=== PATIENT | female | born 1995 | race Caucasian/White ===

== ENCOUNTER 2023-01-06 05:50 | Emergency (ER) | payer OTHER, SELFPAY ==
[2023-01-06 05:52] VITALS: BP 116/62; PULSE 53; RESP 20; O2SAT 99; BMI 24.0
--- NOTE | 2023-01-06 05:55 | DI.CT.S_ITS ---
PROCEDURE: CT KIDNEY URETER BLADDER (KUB) INDICATIONS: flank pain, right TECHNIQUE: Axial sections were acquired from the lung bases to the pubic symphysis. Coronal and sagittal reformats were performed. For radiation dose reduction, the following was used: automated exposure control, adjustment of mA and/or kV according to patient size. COMPARISON: None. FINDINGS: Image quality: Excellent. Lung bases: Lung bases are clear. Heart: No significant findings. URINARY: Right Kidney/ureter: There is a 4 mm right renal stone. There is mild right hydroureteronephrosis with small 2 mm distal right ureteral stone visualized at the right ureterovesicular junction. Left Kidney: No stones or hydronephrosis. Left Ureter: No hydroureter. Bladder: Normal wall thickness. No stones. ABDOMEN: Liver: Unremarkable. Gallbladder: Unremarkable. Biliary ducts: Unremarkable. Pancreas: Unremarkable. Spleen: Unremarkable. Adrenal Glands: Unremarkable. Stomach and Bowel: Stomach, small bowel loops, and colon are unremarkable. The appendix is not definitively visualized. However, no secondary findings of acute inflammation are noted in the right lower quadrant. Peritoneum: No abnormal intraperitoneal fluid. No free air. Ventral Wall: No hernia. Abdominal Nodes: No enlarged retroperitoneal or mesenteric lymph nodes. Vessels: Aorta and inferior vena cava are normal in size. PELVIS: Pelvic Organs: Unremarkable. Pelvic Nodes: Unremarkable. Miscellaneous: No inguinal hernias are seen. Bones: Visualized osseous structures appear intact without acute fracture or focal destructive lesion. No acute compression fractures of the imaged spine. IMPRESSION: There is a small 2 mm obstructing distal right ureteral stone visualized at the right ureterovesicular junction with associated mild-moderate right hydroureteronephrosis. Additional 4 mm right renal stone visualized. The appendix is not definitively visualized; however, no secondary findings for acute appendicitis identified in the right lower quadrant. No significant discrepancy with the prn physical therapist radiology preliminary report. Dictated by: Carlos Knight M.D. on 01/06/2023 at 7:32 Approved by: Carlos Knight M.D. on 01/06/2023 at 7:36
--- NOTE | 2023-01-06 05:57 | ED_ITS ---
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 with severe right flank pain. She is had no prior episodes like this. She describes the pain as a 10/10 poin ts to her right flank is unable to find a comfortable position notes that the pain is severe enough that it is causing nausea but she has not yet vomited. She recently finished her menstrual cycle had some vaginal itching was wondering if she perhaps had a yeast infection and used [id number] Monistat. She describes otherwise feeling well, no chest pain, dyspnea, palpitations, upper respiratory symptoms, diarrhea or dysuria. Related Data Previous Rx's Medication Instructions Recorded ibuprofen 800 mg tablet 800 mg PO Q8H PRN pain #20 tabs 01/06/23 nitrofurantoin 100 mg PO Q12H 5 days #10 caps 01/06/23 monohydrate/macrocrystals 100 mg capsule (Macrobid) ondansetron 4 mg disintegrating 4 mg PO Q8H PRN nausea and 01/06/23 tablet vomiting #10 tabs Allergies Allergy/AdvReac Type Severity Reaction Status Date / Time No Known Drug Allergies Allergy Verified 01/06/23 05:58 Review of Systems <Soraida Stevens MD - Last Filed: 01/07/23 07:20> Review of Systems Narrative: Pertinent positive and negative findings as per HPI Exam <Soraida Stevens MD - Last Filed: 01/07/23 07:20> Initial Vital Signs Initial Vital Signs: Vital Signs Pulse Rate 53 L 01/06/23 05:52 Respiratory Rate 20 01/06/23 05:52 Blood Pressure 116/62 01/06/23 05:52 Pulse Oximetry 99 01/06/23 05:52 Oxygen Delivery Method Room Air 01/06/23 05:52 General: Healthy appearing, in severe pain unable to find a comfortable position. Able to give a complete and coherent history. Well-nourished well-developed HEENT: Moist mucous membranes, normal sclera with reactive pupils, Respiratory: Lungs are clear to auscultation, no wheezing no rales no rhonchi. Full and symmetrical air movement Cardiac: Regular rate and rhythm no murmurs no bruits Abdomen: Soft, nontender, good bowel tones, right flank pain Skin: Pale but dry, no rashes Neurologic: Grossly neurologically intact with no obvious asymmetries or abnormalities Extremities: No trauma, well perfused Psych: Cooperative, appropriate insight and affect <Omar Sneed MD - Last Filed: 01/07/23 08:24> Initial Vital Signs Initial Vital Signs: Vital Signs Pulse Rate 53 L 01/06/23 05:52 Respiratory Rate 20 01/06/23 05:52 Blood Pressure 116/62 01/06/23 05:52 Pulse Oximetry 99 01/06/23 05:52 Oxygen Delivery Method Room Air 01/06/23 05:52 Course <Soraida Stevens MD - Last Filed: 01/07/23 07:20> Orders Ordered: Discontinued Medications Hydromorphone HCl (Hydromorphone 0.5 Mg Inj) 0.5 mg IV Q15MIN PRN PRN Reason: Pain, Last Admin: 01/06/23 07:24 Dose: 0.5 mg Documented By: Admin: 01/06/23 06:29 Dose: 0.5 mg Documented By: Sodium Chloride (Normal Saline 0.9%) 1,000 mls @ 1,000 mls/hr IV BOLUS ONE Stop: 01/06/23 06:54 Last Infusion: 01/06/23 07:02 Dose: 0 mls/hr Documented By: Admin: 01/06/23 06:00 Dose: 1,000 mls/hr Documented By: SB Ketorolac Tromethamine (Ketorolac 30 Mg/Ml Vial) 15 mg IV NOW ONE Stop: 01/06/23 05:56 Last Admin: 01/06/23 05:59 Dose: 15 mg Documented By: CHATO Nitrofurantoin Macrocrystals (Nitrofurantoin Er 100 Mg Capsule) 100 mg PO NOW ONE Stop: 01/06/23 08:47 Last Admin: 01/06/23 08:49 Dose: 100 mg Documented By: AMMatt Ondansetron HCl (Ondansetron 4 Mg/2 Ml Inj) 4 mg IV NOW ONE Stop: 01/06/23 05:56 Last Admin: 01/06/23 05:59 Dose: 4 mg Documented By: SB Ondansetron HCl (Ondansetron 4 Mg/2 Ml Inj) 4 mg IV NOW ONE Stop: 01/06/23 07:51 Last Admin: 01/06/23 07:55 Dose: 4 mg Documented By: AMV Vital Signs Vital signs: Vital Signs - 8 hr 01/06/23 05:52 01/06/23 05:59 01/06/23 06:00 Pulse Rate 53 L 49 L Respiratory Rate 20 Blood Pressure 116/62 110/62 Pulse Oximetry 99 100 Oxygen Delivery Method Room Air 01/06/23 06:01 01/06/23 08:00 Pulse Rate 55 L 59 L Respiratory Rate 18 Blood Pressure 103/58 L Pulse Oximetry 100 96 Oxygen Delivery Method <Omar Sneed MD - Last Filed: 01/07/23 08:24> Orders Ordered: Discontinued Medications Hydromorphone HCl (Hydromorphone 0.5 Mg Inj) 0.5 mg IV Q15MIN PRN PRN Reason: Pain, Last Admin: 01/06/23 07:24 Dose: 0.5 mg Documented By: Admin: 01/06/23 06:29 Dose: 0.5 mg Documented By: Sodium Chloride (Normal Saline 0.9%) 1,000 mls @ 1,000 mls/hr IV BOLUS ONE Stop: 01/06/23 06:54 Last Infusion: 01/06/23 07:02 Dose: 0 mls/hr Documented By: Admin: 01/06/23 06:00 Dose: 1,000 mls/hr Documented By: SB Ketorolac Tromethamine (Ketorolac 30 Mg/Ml Vial) 15 mg IV NOW ONE Stop: 01/06/23 05:56 Last Admin: 01/06/23 05:59 Dose: 15 mg Documented By: CHATO Nitrofurantoin Macrocrystals (Nitrofurantoin Er 100 Mg Capsule) 100 mg PO NOW ONE Stop: 01/06/23 08:47 Last Admin: 01/06/23 08:49 Dose: 100 mg Documented By: AMV Ondansetron HCl (Ondansetron 4 Mg/2 Ml Inj) 4 mg IV NOW ONE Stop: 01/06/23 05:56 Last Admin: 01/06/23 05:59 Dose: 4 mg Documented By: SB Ondansetron HCl (Ondansetron 4 Mg/2 Ml Inj) 4 mg IV NOW ONE Stop: 01/06/23 07:51 Last Admin: 01/06/23 07:55 Dose: 4 mg Documented By: AMV Vital Signs Vital signs: Vital Signs - 8 hr 01/06/23 05:52 01/06/23 05:59 01/06/23 06:00 Pulse Rate 53 L 49 L Respiratory Rate 20 Blood Pressure 116/62 110/62 Pulse Oximetry 99 100 Oxygen Delivery Method Room Air 01/06/23 06:01 01/06/23 08:00 Pulse Rate 55 L 59 L Respiratory Rate 18 Blood Pressure 103/58 L Pulse Oximetry 100 96 Oxygen Delivery Method Medical Decision Making <Soraida Stevens MD - Last Filed: 01/07/23 07:20> Lab Data 01/06/23 05:54 01/06/23 05:54 Labs: Lab Results 01/06/23 01/06/23 01/06/23 Range/Units 05:54 05:54 05:54 WBC 7.3 (4.5-11.0) X10^3/uL RBC 4.14 (4.0-5.2) X10^6/uL Hgb 13.1 (12.0-16.0) g/dL Hct 38.6 (36-46) % MCV 93.1 (80-100) fL MCH 31.7 (26-34) PG MCHC 34.0 (30-36) % RDW 11.8 (11.6-14.8) % Plt Count 254 (150-400) X10^3/uL Neut % (Auto) 50.4 (50-75) % Lymph % (Auto) 36.7 (25-40) % [place] % (Auto) 11.1 (3-14) % Eos % (Auto) 0.9 L (2-4) % Baso % (Auto) 0.9 (0-2) % Neut # (Auto) 3700 (0982-1591) /uL Lymph # (Auto) 2700 (5940-1316) /uL [place] # (Auto) 800 (0-900) /uL Eos # (Auto) 100 (0-450) /uL Baso # (Auto) 100 (0-100) /uL Sodium 135 L (137-145) mmol/L Potassium 3.8 (3.4-5.1) mmol/L Chloride 105 (98-107) mmol/L Carbon Dioxide 23 (22-32) mmol/L BUN 20 H (7-17) mg/dL Creatinine 0.85 (0.52-1.04) mg/dL Estimated GFR > 60 (>60) mL/min BUN/Creatinine Ratio 23.5 H (6-22) Glucose 138 H (70-100) mg/dL Calcium 8.6 (8.4-10.2) mg/dL Total Bilirubin 0.6 (0.2-1.3) mg/dL AST 26 (14-36) IU/L ALT 28 (<35) IU/L Alkaline Phosphatase 87 (38-126) U/L Total Protein 7.1 (6.3-8.2) g/dL Albumin 4.0 (3.5-5.0) g/dL Globulin 3.1 (1.7-4.1) g/dL Albumin/Globulin Ratio 1.3 (1.0-2.8) Lipase 140 (23-300) U/L HCG, Quant < 2.4 mIU/mL Urine Color Urine Appearance Urine pH (4.5-8.0) Ur Specific [place] (1.000-1.035) Urine Protein (Negative) Urine Glucose (UA) (Negative) g/dL Urine Ketones (NEGATIVE) Urine Occult Blood (Negative) Urine Nitrate (Negative) Urine Bilirubin (NEGATIVE) Urine Urobilinogen (0.2) E.U./dL Ur Leukocyte Esterase (NEGATIVE) Urine RBC (0-5/HPF) Urine WBC (0-5/HPF) Ur Squamous Epith Cells (0-5/HPF) Urine Bacteria (None) Ur Culture Indicated? 01/06/23 Range/Units 07:47 WBC (4.5-11.0) X10^3/uL RBC (4.0-5.2) X10^6/uL Hgb (12.0-16.0) g/dL Hct (36-46) % MCV (80-100) fL MCH (26-34) PG MCHC (30-36) % RDW (11.6-14.8) % Plt Count (150-400) X10^3/uL Neut % (Auto) (50-75) % Lymph % (Auto) (25-40) % [place] % (Auto) (3-14) % Eos % (Auto) (2-4) % Baso % (Auto) (0-2) % Neut # (Auto) (5876-1685) /uL Lymph # (Auto) (7408-6650) /uL [place] # (Auto) (0-900) /uL Eos # (Auto) (0-450) /uL Baso # (Auto) (0-100) /uL Sodium (137-145) mmol/L Potassium (3.4-5.1) mmol/L Chloride (98-107) mmol/L Carbon Dioxide (22-32) mmol/L BUN (7-17) mg/dL Creatinine (0.52-1.04) mg/dL Estimated GFR (>60) mL/min BUN/Creatinine Ratio (6-22) Glucose (70-100) mg/dL Calcium (8.4-10.2) mg/dL Total Bilirubin (0.2-1.3) mg/dL AST (14-36) IU/L ALT (<35) IU/L Alkaline Phosphatase (38-126) U/L Total Protein (6.3-8.2) g/dL Albumin (3.5-5.0) g/dL Globulin (1.7-4.1) g/dL Albumin/Globulin Ratio (1.0-2.8) Lipase (23-300) U/L HCG, Quant mIU/mL Urine Color Yellow Urine Appearance Cloudy Urine pH 5.5 (4.5-8.0) Ur Specific [place] >=1.030 H (1.000-1.035) Urine Protein 1+ H (Negative) Urine Glucose (UA) Negative (Negative) g/dL Urine Ketones Negative (NEGATIVE) Urine Occult Blood 3+ H (Negative) Urine Nitrate Negative (Negative) Urine Bilirubin Negative (NEGATIVE) Urine Urobilinogen 1.0 (0.2) E.U./dL Ur Leukocyte Esterase Trace H (NEGATIVE) Urine RBC 10-30/hpf H (0-5/HPF) Urine WBC 1-5/hpf (0-5/HPF) Ur Squamous Epith Cells 1-5 /hpf (0-5/HPF) Urine Bacteria Few (2-10) H (None) Ur Culture Indicated? Specimen cultured Point of Care Testing Test Results Negative Point of care testing: Point of Care Testing Test Results Negative MDM Narrative Medical decision making narrative: CC: Acute onset right flank pain Complicating co-morbidities: Possible yeast infection, just finished menstrual cycle Data collected from: patient, Differential considered: Kidney stone, pyelonephritis, ectopic doubt abdominal aneurysm Exam documented above, pertinent findings include: Right flank pain with non tender abdominal exam, unable to find a comfortable position Lab Test results independently reviewed as above. Pertinent findings: CBC is unremarkable Chemistries are relatively reassuring Imaging studies independently reviewed: Consultations: Treatments: Re-evaluations: Discussion: <Omar Sneed MD - Last Filed: 01/07/23 08:24> Lab Data Labs: Lab Results 01/06/23 01/06/23 01/06/23 Range/Units 05:54 05:54 05:54 WBC 7.3 (4.5-11.0) X10^3/uL RBC 4.14 (4.0-5.2) X10^6/uL Hgb 13.1 (12.0-16.0) g/dL Hct 38.6 (36-46) % MCV 93.1 (80-100) fL MCH 31.7 (26-34) PG MCHC 34.0 (30-36) % RDW 11.8 (11.6-14.8) % Plt Count 254 (150-400) X10^3/uL Neut % (Auto) 50.4 (50-75) % Lymph % (Auto) 36.7 (25-40) % [place] % (Auto) 11.1 (3-14) % Eos % (Auto) 0.9 L (2-4) % Baso % (Auto) 0.9 (0-2) % Neut # (Auto) 3700 (2532-6800) /uL Lymph # (Auto) 2700 (8881-5292) /uL [place] # (Auto) 800 (0-900) /uL Eos # (Auto) 100 (0-450) /uL Baso # (Auto) 100 (0-100) /uL Sodium 135 L (137-145) mmol/L Potassium 3.8 (3.4-5.1) mmol/L Chloride 105 (98-107) mmol/L Carbon Dioxide 23 (22-32) mmol/L BUN 20 H (7-17) mg/dL Creatinine 0.85 (0.52-1.04) mg/dL Estimated GFR > 60 (>60) mL/min BUN/Creatinine Ratio 23.5 H (6-22) Glucose 138 H (70-100) mg/dL Calcium 8.6 (8.4-10.2) mg/dL Total Bilirubin 0.6 (0.2-1.3) mg/dL AST 26 (14-36) IU/L ALT 28 (<35) IU/L Alkaline Phosphatase 87 (38-126) U/L Total Protein 7.1 (6.3-8.2) g/dL Albumin 4.0 (3.5-5.0) g/dL Globulin 3.1 (1.7-4.1) g/dL Albumin/Globulin Ratio 1.3 (1.0-2.8) Lipase 140 (23-300) U/L HCG, Quant < 2.4 mIU/mL Urine Color Urine Appearance Urine pH (4.5-8.0) Ur Specific [place] (1.000-1.035) Urine Protein (Negative) Urine Glucose (UA) (Negative) g/dL Urine Ketones (NEGATIVE) Urine Occult Blood (Negative) Urine Nitrate (Negative) Urine Bilirubin (NEGATIVE) Urine Urobilinogen (0.2) E.U./dL Ur Leukocyte Esterase (NEGATIVE) Urine RBC (0-5/HPF) Urine WBC (0-5/HPF) Ur Squamous Epith Cells (0-5/HPF) Urine Bacteria (None) Ur Culture Indicated? 01/06/23 Range/Units 07:47 WBC (4.5-11.0) X10^3/uL RBC (4.0-5.2) X10^6/uL Hgb (12.0-16.0) g/dL Hct (36-46) % MCV (80-100) fL MCH (26-34) PG MCHC (30-36) % RDW (11.6-14.8) % Plt Count (150-400) X10^3/uL Neut % (Auto) (50-75) % Lymph % (Auto) (25-40) % [place] % (Auto) (3-14) % Eos % (Auto) (2-4) % Baso % (Auto) (0-2) % Neut # (Auto) (7730-8941) /uL Lymph # (Auto) (7777-6645) /uL [place] # (Auto) (0-900) /uL Eos # (Auto) (0-450) /uL Baso # (Auto) (0-100) /uL Sodium (137-145) mmol/L Potassium (3.4-5.1) mmol/L Chloride (98-107) mmol/L Carbon Dioxide (22-32) mmol/L BUN (7-17) mg/dL Creatinine (0.52-1.04) mg/dL Estimated GFR (>60) mL/min BUN/Creatinine Ratio (6-22) Glucose (70-100) mg/dL Calcium (8.4-10.2) mg/dL Total Bilirubin (0.2-1.3) mg/dL AST (14-36) IU/L ALT (<35) IU/L Alkaline Phosphatase (38-126) U/L Total Protein (6.3-8.2) g/dL Albumin (3.5-5.0) g/dL Globulin (1.7-4.1) g/dL Albumin/Globulin Ratio (1.0-2.8) Lipase (23-300) U/L HCG, Quant mIU/mL Urine Color Yellow Urine Appearance Cloudy Urine pH 5.5 (4.5-8.0) Ur Specific [place] >=1.030 H (1.000-1.035) Urine Protein 1+ H (Negative) Urine Glucose (UA) Negative (Negative) g/dL Urine Ketones Negative (NEGATIVE) Urine Occult Blood 3+ H (Negative) Urine Nitrate Negative (Negative) Urine Bilirubin Negative (NEGATIVE) Urine Urobilinogen 1.0 (0.2) E.U./dL Ur Leukocyte Esterase Trace H (NEGATIVE) Urine RBC 10-30/hpf H (0-5/HPF) Urine WBC 1-5/hpf (0-5/HPF) Ur Squamous Epith Cells 1-5 /hpf (0-5/HPF) Urine Bacteria Few (2-10) H (None) Ur Culture Indicated? Specimen cultured Point of Care Testing Test Results Negative Point of care testing: Point of Care Testing Test Results Negative Imaging Data CT scan - abdomen/pelvis: Radiologist's Impression: Right hydronephrosis right hydroureter, 2 mm right UVJ stone MDM Narrative Medical decision making narrative: CC: Acute onset right flank pain Complicating co-morbidities: Possible yeast infection, just finished menstrual cycle Data collected from: patient, Differential considered: Kidney stone, pyelonephritis, ectopic doubt abdominal aneurysm Exam documented above, pertinent findings include: Right flank pain with non tender abdominal exam, unable to find a comfortable position Lab Test results independently reviewed as above. Pertinent findings: CBC is unremarkable Chemistries are relatively reassuring Imaging studies independently reviewed: CT abdomen pelvis moderate right hydronephrosis hydroureter secondary to small distal right ureteral stone UVJ junction 2 mm Consultations: None indicated at this time Treatments: Zofran Toradol Dilaudid Re-evaluations: 8:23 a.m.. Patient has passed a small stone after returning from CT scan. It is about 2 mm and clinically correlated to description to the CT imaging. Patient is pain-free at this time. Reviewed results with her. 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 Return precautions reviewed with her. Not toxic at discharge. Discussion: Appropriate for discharge home. Patient is pain-free at this time. Patient has likely passed a 2 mm stone that was seen on CT scan imaging. Referral for Urology will be provided. Work note provided. Prescription for Zofran and ibuprofen will be provided. No Flomax indicated this time. Patient has already passed the stone. Macrobid will be provided for possible early UTI Additional Information: January 06, 2023 at 7:00 a.m.. Sign-out from Dr. Pedraza, CT is pending. Differential diagnosis includes but not limited to kidney stone. Pain is controlled at this time. Discharge Plan Departure Patient Disposition: Home Clinical Impression: Right ureteral calculus Instructions: DI for Kidney Stones Activity Restrictions/Additional Instructions: No driving or operating machinery today. Please do get plenty of rest and keep well hydrated. Results from today does show you likely passed a kidney stone while visiting here. Referral for Urology has been provided. Please call office today for re-evaluation and week. Prescription for nausea medication as well as ibuprofen has been provided for pain. Short course of antibiotics for possible urinary tract infection will be started indicated. Return if worse if any questions or concerns Prescriptions: New ibuprofen 800 mg tablet 800 mg PO Q8H PRN (Reason: pain) Qty: 20 0RF ondansetron 4 mg tablet,disintegrating 4 mg PO Q8H PRN (Reason: nausea and vomiting) Qty: 10 0RF nitrofurantoin monohyd/m-cryst [Macrobid] 100 mg capsule 100 mg PO Q12H 5 Days Qty: 10 0RF Rx Instructions: must administer with a meal/food Referrals: Cm Oliva MD [Physician] - Stand Alone Forms: Patient Portal/API, Work Release Note
[2023-01-06 05:59] VITALS: PULSE 49; O2SAT 100
[2023-01-06] MEDS: KETOROLAC 30 MG/ML VIAL 15 MG IV (05:59)
[2023-01-06] MEDS: ONDANSETRON 4 MG/2 ML INJ IV ×2 (05:59→07:55)
[2023-01-06 06:00] VITALS: BP 110/62
[2023-01-06] MEDS: SODIUM CHLORIDE 0.9% 1,000 ML 1000 ML IV (06:00)
[2023-01-06 06:01] VITALS: PULSE 55; O2SAT 100
[2023-01-06 06:04] LABS: Add Manual Diff / Slide Review NO; Basophils Absolute Auto 100 /uL (0-100); Basophils Percent Auto 0.9 % (0-2); Eosinophils Absolute Auto 100 /uL (0-450); Eosinophils Percent Auto 0.9 % (2-4); Hematocrit 38.6 % (36-46); Hemoglobin 13.1 g/dL (12.0-16.0); Lymphocytes Absolute Auto 2700 /uL (1100-4500); Lymphocytes Percent Auto 36.7 % (25-40); Mean Corpuscular Hemoglobin 31.7 PG (26-34); Mean Corpuscular Volume 93.1 fL (80-100); Monocytes Absolute Auto 800 /uL (0-900); Monocytes Percent Auto 11.1 % (3-14); Neutrophils Absolute Auto 3700 /uL (1500-7000); Neutrophils Percent Auto 50.4 % (50-75); Platelet Count 254 X10^3/uL (150-400); Red Blood Cell Count 4.14 X10^6/uL (4.0-5.2); Red Cell Distribution Width 11.8 % (11.6-14.8); White Blood Cell Count 7.3 X10^3/uL (4.5-11.0)
[2023-01-06 06:12] LABS: Alanine Aminotransferase 28 IU/L (<35); Albumin Globulin Ratio 1.3 (1.0-2.8); Alkaline Phosphatase 87 U/L (38-126); Aspartate Aminotransferase 26 IU/L (14-36); BUN Creatinine Ratio 23.5 (6-22); Bilirubin Total 0.6 mg/dL (0.2-1.3); Blood Urea Nitrogen 20 mg/dL (7-17); Calcium 8.6 mg/dL (8.4-10.2); Carbon Dioxide 23 mmol/L (22-32); Chloride 105 mmol/L (98-107); Estimated Glomerular Filt Rate > 60 mL/min (>60); Globulin 3.1 g/dL (1.7-4.1); Glucose 138 mg/dL (70-100); HEMOLYSIS < 15 (0-50); Lipase 140 U/L (23-300); Potassium 3.8 mmol/L (3.4-5.1); Sodium 135 mmol/L (137-145); Total Protein 7.1 g/dL (6.3-8.2)
[2023-01-06] MEDS: HYDROMORPHONE 0.5 MG INJ IV ×2 (06:29→07:24)
[2023-01-06 06:56] LABS: HCG Quantitative /Beta subunit < 2.4 mIU/mL
[2023-01-06 08:00] VITALS: BP 103/58; PULSE 59; RESP 18; O2SAT 96
[2023-01-06 08:01] LABS: Appearance Urine UA CLOUDY; Bilirubin Urine UA NEGATIVE (NEGATIVE); Color Urine UA YELLOW; Glucose Urine UA NEGATIVE (Negative); Ketones Urine UA NEGATIVE (NEGATIVE); Leukocyte Esterase Urine UA TRACE (NEGATIVE); Nitrite Urine UA NEGATIVE (Negative); Occult Blood Urine UA 3+ (Negative); Protein Urine UA 1+ (Negative); Specific Gravity Urine UA >=1.030 (1.000-1.035)
[2023-01-06 08:07] LABS: pH Urine UA 5.5 (4.5-8.0)
[2023-01-06 08:13] LABS: Bacteria Urine Few (2-10); Culture Indicated Urine Specimen Cultured; RBC Urine 10-30/HPF (0-5/HPF); Squamous Epithelial Cell Urine 1-5 /HPF (0-5/HPF); WBC Urine 1-5/HPF (0-5/HPF)
[2023-01-06] MEDS: NITROFURANTOIN ER 100 MG CAPSULE PO (08:49)
== END 2023-01-06 09:01 | disposition home or self-care (01) ==
PROVIDERS: Emergency Medicine; Emergency Provider Emergency Medicine
DX: N20.1 Calculus of ureter (principal); R11.0 Nausea; L29.2 Pruritus vulvae
CPT/HCPCS: 36415; 74176; 80053; 81001; 81025; 83690; 84702; 85025; 87086; 96361; 96374; 96375; 96376; 99284; J1170; J1885; J2405